=== PATIENT | male | born 1990 | race Caucasian/White ===

== ENCOUNTER → 2016-11-02 | Day surgery (SDC) | payer OTHER ==
[~2016-11-02] MED LIST: NO MEDICATIONS
--- NOTE | ~2016-11-02 | OR ---
Unit #: [id number] #: [id number] Patient: AZALEA RICE [id number] [address] [place], [place] [address] [id number] O MR#: [id number] NAME: AZALEA RICE ROOM: Date of Procedure: 11/02/2016 Admission Date: 11/02/2016 Surgeon: Sean Manjarrez M.D. : 1990 Attending Physician: Sean Manjarrez M.D. Primary Care Physician: Halie Giles OPERATIVE REPORT PREOPERATIVE DIAGNOSIS Incarcerated right inguinal hernia. POSTOPERATIVE DIAGNOSIS Incarcerated indirect right inguinal hernia. PROCEDURE PERFORMED Laparoscopic preperitoneal inguinal hernia repair of incarcerated right inguinal hernia. PRODUCTION CONTROL PLANNER Nele Tripp M.D. ANESTHESIA General. ESTIMATED BLOOD LOSS Minimal. IV FLUIDS 800 crystalloid. COMPLICATIONS None. INDICATIONS FOR PROCEDURE The patient is a 26-year-old gentleman with incarcerated right inguinal hernia. DESCRIPTION OF PROCEDURE The patient was taken to the operating theater and placed in a supine position. General anesthesia was induced. The abdomen was prepped and draped. Infraumbilical incision was then made. A small incision was made in the anterior sheath. I created the preperitoneal space with blunt dissection. A Veress needle was placed intra-abdominally. The abdomen was insufflated to 15 mmHg with CO2. I placed a 5-mm port. The patient was placed in Trendelenburg. I identified a right-sided indirect incarcerated inguinal hernia. I placed another 5 mm port. I was able to reduce the hernia. I released the pneumoperitoneum. I then created the preperitoneal space in the right side only using the Auto[employer] balloon dissection system. I placed two 5-mm ports in the midline. I dissected the right groin, identifying the lateral space. The cord was Unit #: [id number] #: [id number] Patient: AZALEA IRCE skeletonized. The hernia sac from the cord and reduced. I identified German ligament. I placed a large 3DMax mesh into position. This was anteriolized and secured to German ligament as well as lateral anterior musculature with the SorbaFix Tacker. This covered the direct and indirect spaces nicely. Hemostasis was adequate. I released the pneumopreperitoneum with care taken to avoid the peritoneum sliding posterior to the mesh. The ports were removed. The fascia was closed with 0 Vicryl and skin with 4-0 Vicryl. The patient tolerated the procedure well and sent to recovery room in good condition. Dictated by... Josefa Barbosa/gi TD: 11/02/2016 13:24 JOB #: [id number] OPERATIVE REPORT Page 1 of 1 X Sean Manjarrez MD X PROCEDURE OPERATIVE NOTE
== END | disposition home or self-care (01) ==
LOC: CSUR 08:45
DX: K40.30 Unilateral inguinal hernia, with obstruction, without gangrene, not specified as recurrent (principal)
CPT/HCPCS: C1781; J0330; J0690; J1644; J2250; J2405; J2710; J3010